=== PATIENT | female | born 1990 | race Caucasian/White ===

== ENCOUNTER 2019-07-26 14:53 | Emergency (ER) | payer SELFPAY ==
[2019-07-26 15:49] VITALS: BP 107/70
--- NOTE | 2019-07-26 17:04 | UC ---
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 Believes attachment was less than 24 hours. Has the tick with her--looks consistent with non-engorged deer tick nymph. a one month old. No hx of Lyme disease. - History of Current Complaint Chief Complaint: UCSkin Time Seen by Provider: 07/26/19 16:52 Stated Complaint: TICK BITE Hx Obtained From: Patient Hx Last Menstrual Period: now ?: No Onset/Duration: Sudden Onset, Lasting Hours Skin Exposure Onset/Duration: Hours Ago Timing: Constant Onset Severity: Mild Current Severity: None Pain Intensity: 0 Location: Discrete - left anterior thigh Character: Redness - mild erythema at the site, about 5 mm Aggravating Factor(s): Nothing Alleviating Factor(s): Nothing Associated Signs & Symptoms: Positive: Negative Related History: Insect Bite/Sting - Allergy/Home Medications Allergies/Adverse Reactions: Allergies Allergy/AdvReac Type Severity Reaction Status Date / Time No Known Allergies Allergy Verified 07/26/19 15:49 Home Medications: Home Medications NK [No Home Medications Reported] 07/26/19 [History Confirmed 07/26/19] PMH/Surg Hx/FS Hx/Imm Hx Previously Healthy: Yes - Surgical History Surgical History: None - Family History Known Family History: Positive: Non-Contributory - Social History Occupation: Employed Full-time Alcohol Use: Rare Substance Use Type: None Smoking Status (MU): Never Smoked Tobacco Review of Systems All Other Systems Reviewed And Are Negative: Yes Constitutional: Positive: Negative Eyes: Positive: Negative Respiratory: Positive: Negative Is Patient Immunocompromised?: No Physical Exam Triage Information Reviewed: Yes Appearance: Well-Appearing, No Pain Distress Vital Signs: Initial Vital Signs Temp 97.2 F 07/26/19 15:46 Pulse 82 07/26/19 15:46 Resp 16 07/26/19 15:46 BP 107/70 07/26/19 15:46 Pulse Ox 100 07/26/19 15:46 Neck: Positive: No Lymphadenopathy Respiratory: Positive: Lungs clear, Normal breath sounds Cardiovascular: Positive: RRR, No Murmur Musculoskeletal Exam: Normal Neurological Exam: Normal Psychological Exam: Normal Skin Exam: Other - 5 mm erythematous spot anterior left thigh about 10 cm above the knee. Course/Dx - Course Course Of Treatment: Discussed prophylaxis not indicated. Can submit tick for analysis if she would like. Observe for signs of Lyme but likelihood is low. - Differential Diagnoses - Skin Complaint Differential Diagnoses: Other - tick bite - Diagnoses Provider Diagnosis: Tick bite Discharge ED - Sign-Out/Discharge Documenting (check all that apply): Patient Departure All imaging exams completed and their final reports reviewed: No Studies - Discharge Plan Condition: Good Disposition: HOME Patient Education Materials: Tick Bite (ED) Referrals: Frida Hill PA [Primary Care Provider] - Additional Instructions: As reviewed, no treatment is indicated at this time. Observe for development of rash over the next several weeks (Likelihood is low) , and monitor for fever and joint pain./ - Billing Disposition and Condition Condition: GOOD Disposition: Home
== END 2019-07-26 17:22 | disposition home or self-care (01) ==
LOC: UCEAST 14:53
DX: S70.362A Insect bite (nonvenomous), left thigh, initial encounter (principal); W57.XXXA Bitten or stung by nonvenomous insect and other nonvenomous arthropods, initial encounter; Y92.9 Unspecified place or not applicable
CPT/HCPCS: 99211; G0463